=== PATIENT | female | born 1955 | race Hispanic/Latino ===

== ENCOUNTER 2017-07-01 08:24 | Emergency (ER) | payer MEDICARE ==
--- NOTE | 2017-07-01 08:59 | RAD ---
PA AND LATERAL VIEWS CHEST: HISTORY: Cough, flu. FINDINGS: Comparison is made with the exam of 03/03/12. The heart size is normal. The lungs are expanded without focal areas of consolidation, pneumothorax or pleural effusions. There are postop changes in the right axilla and shoulder. There are mild deg enerative changes in the spine. IMPRESSION: No radiographic evidence of acute cardiopulmonary process. POS: [facility]
[2017-07-01 09:02] LABS: #Basophils 0.1 thou/uL (0.0-0.2); #Eosinphils 0.3 thou/uL (0.0-0.7); #Lymphocytes 1.9 thou/uL (1.20-3.40); #Monocytes 0.7 thou/uL (0.11-0.59); #Neutrophils 8.4 thou/uL (1.40-6.50); %Basophils 0.5 % (0.0-1.0); %Eosinophils 2.6 % (0.0-10.0); %Lymphocytes 16.4 % (21.0-51.0); %Neutrophils 74.5 % (42.0-75.0); Hemoglobin 12.6 g/dL (12.0-16.0); Mean Corpuscular HGB CONC 31.7 g/dL (32.0-36.0); Mean Corpuscular Hemoglobin 27.7 pg (27.0-31.0); Mean Corpuscular Volume 87.2 fl (81.0-99.0); Mean Platelet Volume 8.6 fL (7.4-10.4); Platelet Count 239 thou/uL (130-400); RBC Distribution Width 13.4 % (11.5-14.5); Red Blood Cell (RBC) Count 4.55 mill/uL (4.20-5.40); White Blood Cell (WBC) Count 11.3 thou/uL (4.8-10.8)
[2017-07-01] MEDS ORDERED: Acetaminophen 500 MG TAB ONE ×2 (09:05)
[2017-07-01 09:24] LABS: ALT (SGPT) 15 U/L (8-55); AST (SGOT) 20 U/L (5-34); Albumin 3.7 g/dL (3.4-4.8); Alkaline Phosphatase 157 U/L (40-150); Anion Gap 9 mmol/L (10-20); BUN (Urea Nitrogen) 13 mg/dL (9.8-20.1); Bilirubin, Total 1.1 mg/dL (0.2-1.2); Calc. Creatinine Clearance 0 mL/min (70-130); Calcium 9.2 mg/dL (7.8-10.44); Carbon Dioxide 27 mmol/L (23-31); Chloride 101 mmol/L (98-107); Estimated GFR-MDRD Greater than 90; Globulin 3.7 g/dL (2.4-3.5); Glucose 267 mg/dL (80-115); Protein, Total 7.4 g/dL (6.0-8.3); Sodium 133 mmol/L (136-145)
[2017-07-01 09:32] LABS: Bilirubin Negative (Negative); Blood, Urine Negative (Negative); Clarity CLOUDY (Clear); Glucose, Urine (Dipstick) >=1000 mg/dL (Negative); Leukocyte Moderate (Negative); Nitrite Positive (Negative); Protein, Urine (Dipstick) Negative (Neg-Trace); Specific Gravity, Urine 1.029 (1.002-1.036); pH, Urine 6.5 (5.0-9.0)
[2017-07-01 09:35] LABS: Bacteria/HPF 4+ HPF (None Seen); Pathc Cast-AUWi Flag 1.62 (0-2.49); RBC/HPF 0-3 HPF (0-3); Squamous Epithelial 0-3 HPF (0-3)
[2017-07-01 10:12] LABS: Hyaline Casts/LPF NONE SEEN LPF (0-3 Hyaline)
== END 2017-07-01 09:59 | disposition home or self-care (01) ==
LOC: ERS 08:24
DX: J06.9 Acute upper respiratory infection, unspecified (principal); E11.9 Type 2 diabetes mellitus without complications; E78.5 Hyperlipidemia, unspecified; I10 Essential (primary) hypertension
CPT/HCPCS: 36416; 71046; 80053; 81003; 81015; 85025

== ENCOUNTER 2017-10-17 14:55 | Outpatient (CLI) | payer MEDICARE | END 2017-10-17 14:56 | disposition home or self-care (01) | LOC: BICMAMMO 14:55 | PROVIDERS: ATTEND Internal Medicine Medical Oncology | DX: Z12.31 Encounter for screening mammogram for malignant neoplasm of breast (principal); Z85.3 Personal history of malignant neoplasm of breast; Z80.3 Family history of malignant neoplasm of breast | CPT/HCPCS: 77063; 77067 ==

== ENCOUNTER 2018-06-29 12:36 | Emergency (ER) | payer MEDICARE | END 2018-06-29 13:59 | disposition home or self-care (01) | LOC: ERS 12:36 | DX: B34.9 Viral infection, unspecified (principal); E11.9 Type 2 diabetes mellitus without complications; I10 Essential (primary) hypertension; E78.5 Hyperlipidemia, unspecified; Z79.84 Long term (current) use of oral hypoglycemic drugs | CPT/HCPCS: 99283 ==

== ENCOUNTER 2019-02-23 12:58 | Outpatient (CLI) | payer MEDICARE ==
--- NOTE | 2019-02-23 13:50 | MMO ---
Bilateral MAMMO Bilat Screen [facility]. CLINICAL HISTORY: Patient is 63 years old and is seen for screening. The patient has the following family history of breast cancer: sister. 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 in the right breast at age 51. The patient has a history of right Lumpectomy in January, - malignant. VIEWS: The views performed were: bilateral craniocaudal with tomosynthesis and bilateral mediolateral oblique with tomosynthesis. FILMS COMPARED: The present examination has been compared to prior imaging studies performed at [facility] on 07/25/2013, 01/16/2015, 05/25/2016 and 10/17/2017. This study has been interpreted with the assistance of computer-aided detection. MAMMOGRAM FINDINGS: There are scattered fibroglandular densities. Finding 1: There are stable post operative changes seen in the right breast. Finding 2: There are stable benign appearing calcifications seen in both breasts. There are no suspicious masses, suspicious calcifications, or new areas of architectural distortion. IMPRESSION: THERE IS NO MAMMOGRAPHIC EVIDENCE OF MALIGNANCY. A ROUTINE FOLLOW-UP MAMMOGRAM IN 1 YEAR IS RECOMMENDED. THE RESULTS OF THIS EXAM WERE SENT TO THE PATIENT. ACR BI-RADS Category 2 - Benign finding MAMMOGRAPHY NOTE: 1. A negative mammogram report should not delay a biopsy if a dominant of clinically suspicious mass is present. 2. Approximately 10% to 15% of breast cancers are not detected by mammography. 3. Adenosis and dense breasts may obscure an underlying neoplasm. Reported by: WILLIS JARRELL MD Electonically Signed: [id number]
== END 2019-02-23 12:59 | disposition home or self-care (01) ==
LOC: BICMAMMO 12:58
PROVIDERS: ATTEND Internal Medicine Medical Oncology
DX: Z12.31 Encounter for screening mammogram for malignant neoplasm of breast (principal); Z85.3 Personal history of malignant neoplasm of breast; Z80.3 Family history of malignant neoplasm of breast
CPT/HCPCS: 77063; 77067

== ENCOUNTER 2021-06-30 09:34 | Outpatient (CLI) | payer MEDICARE | END 2021-06-30 09:35 | disposition home or self-care (01) | LOC: BICMAMMO 09:34 | PROVIDERS: ATTEND Internal Medicine Medical Oncology | DX: Z12.31 Encounter for screening mammogram for malignant neoplasm of breast (principal); Z80.3 Family history of malignant neoplasm of breast; Z85.3 Personal history of malignant neoplasm of breast; Z98.890 Other specified postprocedural states | CPT/HCPCS: 77063; 77067 ==

== ENCOUNTER 2021-09-15 16:20 | Outpatient (CLI) | payer MEDICARE | END 2021-09-15 16:21 | disposition home or self-care (01) | LOC: LABBT 16:20 | PROVIDERS: ATTEND Thoracic Surgery (Cardiothoracic Vascular Surgery) | DX: Z01.812 Encounter for preprocedural laboratory examination (principal); Z20.822 Contact with and (suspected) exposure to COVID-19 | CPT/HCPCS: 80048; 85027; 86850; 86900; 86901; 86920; U0003; U0005 ==

== ENCOUNTER 2021-09-15 16:30 | Inpatient (IN) | payer MEDICARE ==
[2021-09-15 18:18] LABS: Hemoglobin 11.4 g/dL (12.0-15.5); Mean Corpuscular HGB CONC 31.8 g/dL (32.0-36.0); Mean Corpuscular Hemoglobin 25.7 pg (27.0-33.0); Mean Corpuscular Volume 80.6 fl (81.6-98.3); Platelet Count 261 10x3/uL (150-450); RBC Distribution Width 15.8 % (11.5-14.5); Red Blood Cell (RBC) Count 4.44 10x6/uL (3.90-5.03); White Blood Cell (WBC) Count 6.7 10x3/uL (3.5-10.5)
[2021-09-15 18:35] LABS: Anion Gap 14 mmol/L (10-20); BUN (Urea Nitrogen) 22 mg/dL (9.8-20.1); Calc. Creatinine Clearance 0 mL/min (70-130); Calcium 9.4 mg/dL (7.8-10.44); Carbon Dioxide 24 mmol/L (23-31); Chloride 102 mmol/L (98-107); Glucose 262 mg/dL (80-115); Potassium 4.1 mmol/L (3.5-5.1); Sodium 136 mmol/L (136-145)
[2021-09-16 00:50] LABS: SARS-CoV-2 PCR by NAA Not Detected (NotDetected)
[2021-09-18] MEDS ORDERED: Albumin 5% 500 ML ONE (10:12)
[2021-09-18] MEDS ORDERED: PHENYLEPHRINE-NS 100 MCG/ML 10 ML SYRINGE ONE (10:38)
[2021-09-18] MEDS ORDERED: Midazolam HCl 2 mg/2 ml Vial ONE ×2 (10:56→11:13)
[2021-09-18] MEDS ORDERED: Lidocaine 1% MPF 2 ML VIAL ONE (10:56)
[2021-09-18] MEDS ORDERED: Heparin 10,000 UNITS/1 ML VIAL 30,000 UNITS in Sodium Chloride 0.9% 1,000 ML FS SCH (11:00)
[2021-09-18] MEDS ORDERED: Phenylephrine 10 MG/ML VIAL ONE (11:12)
[2021-09-18] MEDS ORDERED: Fentanyl 250 MCG/5 ML VIAL ONE (11:12)
[2021-09-18] MEDS ORDERED: Insulin Regular 300 UNITS/3 ML VIAL ONE (11:12)
[2021-09-18] MEDS ORDERED: ceFAZolin (BATCH) 2 GM/100 ML BAG ONE (11:32)
[2021-09-18] MEDS ORDERED: Papaverine 60 MG/2 ML VIAL ONE (11:52)
[2021-09-18] MEDS ORDERED: Lidocaine 2% PF 100 mg/5 ml Syringe ONE (11:52)
[2021-09-18] MEDS ORDERED: Heparin 5,000 UNITS/ML VIAL ONE (11:52)
[2021-09-18] MEDS ORDERED: Rocuronium Bromide 10 MG/ML (10ML VIAL) ONE (11:52)
[2021-09-18] MEDS ORDERED: Sodium Bicarb 50 MEQ/50 ML Abboject 8.4% SYRINGE ONE (11:52)
[2021-09-18] MEDS ORDERED: PROPOFOL 200 MG/20 ML VIAL ONE (11:52)
[2021-09-18] MEDS ORDERED: Ondansetron PF 4 MG/2 ML Vial ONE (11:52)
[2021-09-18] MEDS ORDERED: Calcium Chloride 1 GM/10 ML Abboject SYRINGE ONE (11:52)
[2021-09-18] MEDS ORDERED: Heparin 30,000 units/30 ml VIAL ONE (11:52)
[2021-09-18] MEDS ORDERED: Esmolol 100 MG/10 ML VIAL ONE (11:52)
[2021-09-18] MEDS ORDERED: Lidocaine 1% PF 5 ML VIAL ONE (11:52)
[2021-09-18] MEDS ORDERED: Aminocaproic Acid 5 GM/20 ML VIAL ONE (11:52)
[2021-09-18] MEDS ORDERED: Mannitol 12.5 GM/50 ML ONE (11:52)
[2021-09-18] MEDS ORDERED: Thrombin 5000 UNITS/5 ML VIAL ONE (11:52)
[2021-09-18] MEDS ORDERED: Cardioplegic Soln 1,000 ML BAG ONE (11:52)
[2021-09-18] MEDS ORDERED: Protamine Sulfate 50 MG/5 ML VIAL ONE (11:52)
[2021-09-18] MEDS ORDERED: Ketorolac Tromethamine 30 MG/ML VIAL ONE (11:52)
[2021-09-18] MEDS ORDERED: Magnesium Sulfate 1 GM/2 ML VIAL ONE (11:52)
[2021-09-18] MEDS ORDERED: HYDROcodone/Acetaminophen 5/325 mg Tablet PO PRN (15:22)
[2021-09-18] MEDS ORDERED: Nitroglycerin 50 MG/250 ML BOT 250 ML IVPB PRN (15:22)
[2021-09-18] MEDS ORDERED: Post-Op Insulin Drip Protocol IVPB ONE (15:22)
[2021-09-18] MEDS ORDERED: Fentanyl 100 MCG/2 ML VIAL SLOW IVP PRN (15:22)
[2021-09-18] MEDS ORDERED: Bisacodyl 5 MG TAB PO PRN (15:22)
[2021-09-18] MEDS ORDERED: DOPamine 400 MG/D5W 250 ML 250 ML IVPB PRN (15:22)
[2021-09-18] MEDS ORDERED: niCARdipine 25 MG in Sodium Chloride 0.9% 250 ML 250 ML IVPB PRN (15:22)
[2021-09-18] MEDS ORDERED: Mag-Al 1200 mg/1200 mg/30 ML UDCUP PO PRN (15:22)
[2021-09-18] MEDS ORDERED: hydrALAZINE 20 MG/ML VIAL SLOW IVP PRN (15:22)
[2021-09-18] MEDS ORDERED: Hetastarch 6% 500 ML 500 ML IVPB PRN (15:22)
[2021-09-18] MEDS ORDERED: Guaifenesin DM 100-10/5 ML UDCUP PO PRN (15:22)
[2021-09-18] MEDS ORDERED: Bisacodyl 10 MG SUPP PR PRN (15:22)
[2021-09-18] MEDS ORDERED: Promethazine HCl 25 MG/ML VIAL IM PRN (15:22)
[2021-09-18] MEDS ORDERED: Ondansetron PF 4 MG/2 ML Vial IVP PRN (15:22)
[2021-09-18] MEDS ORDERED: Morphine 2 MG/ML VIAL SLOW IVP PRN (15:22)
[2021-09-18] MEDS ORDERED: Acetaminophen 325 MG TAB PO PRN (15:22)
[2021-09-18 15:33] LABS: #Basophils 0.1 thou/uL (0.0-0.2); #Eosinphils 0.2 thou/uL (0.0-0.7); #Lymphocytes 1.7 thou/uL (1.20-3.40); #Monocytes 0.6 thou/uL (0.11-0.59); #Neutrophils 15.3 thou/uL (1.40-6.50); %Basophils 0.5 % (0.0-1.0); %Eosinophils 1.1 % (0.0-10.0); %Lymphocytes 9.4 % (21.0-51.0); %Monocytes 3.4 % (0.0-10.0); %Neutrophils 85.7 % (42.0-75.0); Hemoglobin 9.6 g/dL (12.0-16.0); Mean Corpuscular HGB CONC 31.2 g/dL (32.0-36.0); Mean Corpuscular Hemoglobin 26.2 pg (27.0-31.0); Mean Corpuscular Volume 84.1 fL (78.0-98.0); Mean Platelet Volume 9.8 fL (7.4-10.4); Platelet Count 152 thou/uL (130-400); RBC Distribution Width 14.5 % (11.5-14.5); Red Blood Cell (RBC) Count 3.66 mill/uL (4.20-5.40); White Blood Cell (WBC) Count 17.9 thou/uL (4.8-10.8)
[2021-09-18 15:42] LABS: Actual Bicarbonate (HCO3a) 21.5 mEq/L (22-28); Base Excess (BEa) -3.1 mEq/L (-2.0 to +3.0); Calcium, Ionized (arterial) 1.08 mmol/L (1.12-1.30); Hemoglobin (Hb) 10.6 g/dL (12.0-16.0); O2 Tension (PaO2), arterial 183.2 mmHg (> 80.0); Potassium - ABG Lab 3.91 mmol/L (3.70-5.30); Puncture Site Arterial Line; pH, Arterial 7.38 (7.35-7.45)
[2021-09-18 15:43] LABS: INR-International Normal Ratio 1.6
[2021-09-18] MEDS: Lactated Ringer's 1,000 ML IV SCH (15:43)
[2021-09-18 15:44] LABS: PTT 30.8 sec (22.9-36.1)
[2021-09-18] MEDS ORDERED: Dextrose 5% in Water 1,000 ML IV PRN (15:45)
[2021-09-18] MEDS ORDERED: HUMULIN R 100 UNITS in Sodium Chloride 0.9% 100 ML IVPB SCH (15:45)
[2021-09-18] MEDS ORDERED: Dextrose 50% Abboject 50 ML SYRINGE SLOW IVP PRN (15:45)
[2021-09-18] MEDS: Insulin Regular 300 UNITS/3 ML VIAL SC PRN (15:47)
[2021-09-18] MEDS: Fentanyl 100 MCG/2 ML VIAL SLOW IVP PRN ×2 (15:49→22:45)
[2021-09-18 15:51] LABS: Anion Gap 9 mmol/L (10-20); BUN (Urea Nitrogen) 17 mg/dL (9.8-20.1); Calc. Creatinine Clearance 125 mL/min (70-130); Calcium 7.2 mg/dL (7.8-10.44); Carbon Dioxide 23 mmol/L (23-31); Chloride 113 mmol/L (98-107); Glucose 164 mg/dL (80-115); Potassium 3.8 mmol/L (3.5-5.1); Sodium 141 mmol/L (136-145)
[2021-09-18] MEDS: ceFAZolin (BATCH) 2 GM in Premix Bag 1 BAG IVPB SCH (19:54)
[2021-09-18 20:30] LABS: Hemoglobin 10.9 g/dL (12.0-16.0)
[2021-09-18 20:50] LABS: Actual Bicarbonate (HCO3a) 21.7 mEq/L (22-28); Base Excess (BEa) -3.6 mEq/L (-2.0 to +3.0); CO2 Tension 40.3 mmHg (35.0-45.0); Calcium, Ionized (arterial) 1.11 mmol/L (1.12-1.30); Carboxyhemoglobin (COHb) 0.4 gm% (0.0-3.0); Hemoglobin (Hb) 11.5 g/dL (12.0-16.0); O2 Tension (PaO2), arterial 165.1 mmHg (> 80.0); Potassium - ABG Lab 3.91 mmol/L (3.70-5.30); pH, Arterial 7.35 (7.35-7.45)
[2021-09-18 20:51] LABS: ALV-art Gradient 69.725 mmHg (0-20); Puncture Site ALINE
[2021-09-18] MEDS ORDERED: Famotidine/PF 20 mg/2ml Vial SLOW IVP SCH (21:00)
[2021-09-18 21:04] LABS: Potassium 3.7 mmol/L (3.5-5.1)
[2021-09-19] MEDS: Potassium Chloride 20 MEQ/100 ML PREMIX BAG IVPB PRN (00:25)
[2021-09-19] MEDS: Fentanyl 100 MCG/2 ML VIAL SLOW IVP PRN ×4 (00:30→06:37)
[2021-09-19] MEDS: HYDROcodone/Acetaminophen 5/325 mg Tablet PO PRN ×5 (01:06→21:17)
[2021-09-19] MEDS: ceFAZolin (BATCH) 2 GM in Premix Bag 1 BAG IVPB SCH ×2 (03:58→11:08)
[2021-09-19 04:44] LABS: #Lymphocytes 2.1 thou/uL (1.20-3.40); #Neutrophils 10.8 thou/uL (1.40-6.50); %Basophils 0.3 % (0.0-1.0); %Eosinophils 0.1 % (0.0-10.0); %Lymphocytes 15.3 % (21.0-51.0); %Monocytes 6.8 % (0.0-10.0); %Neutrophils 77.4 % (42.0-75.0); Hemoglobin 10.5 g/dL (12.0-16.0); Mean Corpuscular HGB CONC 31.5 g/dL (32.0-36.0); Mean Corpuscular Hemoglobin 26.6 pg (27.0-31.0); Mean Corpuscular Volume 84.5 fL (78.0-98.0); Mean Platelet Volume 9.7 fL (7.4-10.4); Platelet Count 184 thou/uL (130-400); RBC Distribution Width 14.7 % (11.5-14.5); Red Blood Cell (RBC) Count 3.93 mill/uL (4.20-5.40)
[2021-09-19] MEDS: Lactated Ringer's 1,000 ML IV SCH (05:05)
[2021-09-19 05:06] LABS: Anion Gap 11 mmol/L (10-20); BUN (Urea Nitrogen) 19 mg/dL (9.8-20.1); Calc. Creatinine Clearance 129 mL/min (70-130); Calcium 7.7 mg/dL (7.8-10.44); Carbon Dioxide 23 mmol/L (23-31); Chloride 109 mmol/L (98-107); Glucose 149 mg/dL (80-115); Potassium 4.1 mmol/L (3.5-5.1); Sodium 139 mmol/L (136-145)
[2021-09-19] MEDS: Aspirin 325 MG TAB PO SCH (09:18)
[2021-09-19] MEDS: Furosemide 20 MG TAB PO SCH (09:19)
[2021-09-19] MEDS: Polyethylene Glycol 3350 17 GM Packet PO SCH (09:19)
[2021-09-19] MEDS: Famotidine 20 MG TAB PO SCH ×2 (09:19→20:45)
[2021-09-19] MEDS: Clopidogrel Bisulfate 75 MG TAB PO SCH (09:20)
[2021-09-19] MEDS: Ketorolac Tromethamine 30 MG/ML VIAL IVP SCH ×2 (11:07→17:33)
[2021-09-19] MEDS: Insulin Regular 300 UNITS/3 ML VIAL SC PRN ×3 (11:36→20:45)
[2021-09-19] MEDS: Atorvastatin Calcium 20 MG TAB PO SCH (20:45)
[2021-09-20] MEDS: Ketorolac Tromethamine 30 MG/ML VIAL IVP SCH ×4 (00:18→18:32)
[2021-09-20] MEDS: Insulin Regular 300 UNITS/3 ML VIAL SC PRN ×5 (00:23→16:38)
[2021-09-20 05:16] LABS: Anion Gap 12 mmol/L (10-20); BUN (Urea Nitrogen) 16 mg/dL (9.8-20.1); Calc. Creatinine Clearance 116 mL/min (70-130); Calcium 7.8 mg/dL (7.8-10.44); Carbon Dioxide 25 mmol/L (23-31); Chloride 103 mmol/L (98-107); Glucose 170 mg/dL (80-115); Potassium 3.8 mmol/L (3.5-5.1); Sodium 136 mmol/L (136-145)
[2021-09-20] MEDS: Potassium Chloride 20 MEQ/100 ML PREMIX BAG IVPB PRN (05:34)
[2021-09-20 05:52] LABS: #Basophils 0.1 thou/uL (0.0-0.2); #Eosinphils 0.3 thou/uL (0.0-0.7); #Lymphocytes 2.4 thou/uL (1.20-3.40); #Monocytes 1.2 thou/uL (0.11-0.59); #Neutrophils 8.4 thou/uL (1.40-6.50); %Basophils 0.6 % (0.0-1.0); %Eosinophils 2.2 % (0.0-10.0); %Lymphocytes 19.6 % (21.0-51.0); %Monocytes 9.8 % (0.0-10.0); %Neutrophils 67.8 % (42.0-75.0); Band 11 % (5-11); Eosinophils 1 % (0-10); Hemoglobin 9.5 g/dL (12.0-16.0); Hypochromia SLIGHT = 6-15 cells (100X) (0-5/hpf); Lymphocytes 16 % (21-51); MDiff Complete? YES; Mean Corpuscular HGB CONC 33.4 g/dL (32.0-36.0); Mean Corpuscular Hemoglobin 28.4 pg (27.0-31.0); Mean Corpuscular Volume 85.2 fL (78.0-98.0); Mean Platelet Volume 9.2 fL (7.4-10.4); Monocytes 5 % (0-10); Neutrophil 67 % (42-75); Platelet Count 146 thou/uL (130-400); Platelet Morphology Comment Appears Adequate; RBC Distribution Width 14.4 % (11.5-14.5); Red Blood Cell (RBC) Count 3.33 mill/uL (4.20-5.40); White Blood Cell (WBC) Count 12.4 thou/uL (4.8-10.8)
[2021-09-20] MEDS: Polyethylene Glycol 3350 17 GM Packet PO SCH ×2 (08:42→10:35)
[2021-09-20] MEDS: Furosemide 20 MG TAB PO SCH (08:42)
[2021-09-20] MEDS: Clopidogrel Bisulfate 75 MG TAB PO SCH (08:42)
[2021-09-20] MEDS: Famotidine 20 MG TAB PO SCH ×2 (08:42→20:53)
[2021-09-20] MEDS: HYDROcodone/Acetaminophen 5/325 mg Tablet PO PRN ×2 (08:43→20:53)
[2021-09-20] MEDS: Aspirin 325 MG TAB PO SCH (08:44)
[2021-09-20] MEDS: Glimepiride 4 MG TAB PO SCH (08:44)
[2021-09-20] MEDS ORDERED: Nitroglycerin 0.4 MG TAB (25 Tab Bottle) SL PRN (09:08)
[2021-09-20] MEDS ORDERED: Mineral Oil ENEMA PR PRN (09:08)
[2021-09-20] MEDS ORDERED: Dextrose 5% in Water 1,000 ML IV PRN (09:45)
[2021-09-20] MEDS ORDERED: Potassium Chloride 10 MEQ TAB PO SCH (09:45)
[2021-09-20] MEDS ORDERED: Dextrose 50% Abboject 50 ML SYRINGE SLOW IVP PRN (09:45)
[2021-09-20] MEDS: Atorvastatin Calcium 20 MG TAB PO SCH (20:53)
[2021-09-20] MEDS: Insulin Glargine 30 UNITS/0.3 ML VIAL SC SCH (20:54)
[2021-09-21] MEDS: Ketorolac Tromethamine 30 MG/ML VIAL IVP SCH ×4 (00:36→18:29)
[2021-09-21 05:14] LABS: #Basophils 0.1 thou/uL (0.0-0.2); #Eosinphils 0.3 thou/uL (0.0-0.7); %Basophils 0.6 % (0.0-1.0); %Eosinophils 3.1 % (0.0-10.0); %Lymphocytes 21.6 % (21.0-51.0); %Monocytes 10.8 % (0.0-10.0); %Neutrophils 63.9 % (42.0-75.0); Hemoglobin 8.8 g/dL (12.0-16.0); Mean Corpuscular HGB CONC 33.1 g/dL (32.0-36.0); Mean Corpuscular Hemoglobin 27.8 pg (27.0-31.0); Mean Platelet Volume 9.1 fL (7.4-10.4); Platelet Count 177 thou/uL (130-400); RBC Distribution Width 14.3 % (11.5-14.5); Red Blood Cell (RBC) Count 3.17 mill/uL (4.20-5.40); White Blood Cell (WBC) Count 9.4 thou/uL (4.8-10.8)
[2021-09-21 05:35] LABS: Anion Gap 9 mmol/L (10-20); BUN (Urea Nitrogen) 14 mg/dL (9.8-20.1); Calc. Creatinine Clearance 114 mL/min (70-130); Calcium 7.8 mg/dL (7.8-10.44); Carbon Dioxide 25 mmol/L (23-31); Chloride 103 mmol/L (98-107); Glucose 230 mg/dL (80-115); Potassium 4.2 mmol/L (3.5-5.1); Sodium 133 mmol/L (136-145)
[2021-09-21] MEDS: Insulin Regular 300 UNITS/3 ML VIAL SC PRN ×3 (06:03→18:33)
[2021-09-21] MEDS: Aspirin 325 MG TAB PO SCH (10:38)
[2021-09-21] MEDS: Glimepiride 4 MG TAB PO SCH (10:38)
[2021-09-21] MEDS: Potassium Chloride 10 MEQ TAB PO SCH (10:38)
[2021-09-21] MEDS: Polyethylene Glycol 3350 17 GM Packet PO SCH (10:39)
[2021-09-21] MEDS: Furosemide 20 MG TAB PO SCH (10:39)
[2021-09-21] MEDS: Famotidine 20 MG TAB PO SCH ×2 (10:39→21:18)
[2021-09-21] MEDS: Clopidogrel Bisulfate 75 MG TAB PO SCH (10:39)
[2021-09-21 12:43] VITALS: BMI 36.1
[2021-09-21] MEDS: Atorvastatin Calcium 20 MG TAB PO SCH (21:18)
[2021-09-21] MEDS: HYDROcodone/Acetaminophen 5/325 mg Tablet PO PRN (21:19)
[2021-09-21] MEDS: Insulin Glargine 30 UNITS/0.3 ML VIAL SC SCH (21:20)
[2021-09-22] MEDS: Ketorolac Tromethamine 30 MG/ML VIAL IVP SCH ×3 (01:12→12:42)
[2021-09-22] MEDS: Insulin Regular 300 UNITS/3 ML VIAL SC PRN ×2 (06:19→12:44)
[2021-09-22] MEDS: Furosemide 20 MG TAB PO SCH (09:15)
[2021-09-22] MEDS: Clopidogrel Bisulfate 75 MG TAB PO SCH (09:15)
[2021-09-22] MEDS: Potassium Chloride 10 MEQ TAB PO SCH (09:16)
[2021-09-22] MEDS: Famotidine 20 MG TAB PO SCH (09:16)
[2021-09-22] MEDS: Aspirin 325 MG TAB PO SCH (09:16)
[2021-09-22] MEDS: Glimepiride 4 MG TAB PO SCH (09:16)
[2021-09-22] MEDS: Polyethylene Glycol 3350 17 GM Packet PO SCH (09:17)
[2021-09-22 17:02] VITALS: BP 138/63; TEMP 98.1
== END 2021-09-22 16:53 | disposition home or self-care (01) | DRG 236 ==
LOC: SURG A 09-18 10:24 → CCU 09-18 15:04 → 2NO 09-20 19:47
PROVIDERS: ADMIT Thoracic Surgery (Cardiothoracic Vascular Surgery); ATTEND Thoracic Surgery (Cardiothoracic Vascular Surgery)
PROC: 021009W Bypass Coronary Artery, One Artery from Aorta with Autologous Venous Tissue, Open Approach (ICD-10-PCS; principal; 2021-09-18)
PROC: 02100Z9 Bypass Coronary Artery, One Artery from Left Internal Mammary, Open Approach (ICD-10-PCS; 2021-09-18)
PROC: 06BQ0ZZ Excision of Left Saphenous Vein, Open Approach (ICD-10-PCS; 2021-09-18)
PROC: 5A1221Z Performance of Cardiac Output, Continuous (ICD-10-PCS; 2021-09-18)
PROC: 02L70CK Occlusion of Left Atrial Appendage with Extraluminal Device, Open Approach (ICD-10-PCS; 2021-09-18)
DX: I25.10 Atherosclerotic heart disease of native coronary artery without angina pectoris (principal); Z20.822 Contact with and (suspected) exposure to COVID-19; I10 Essential (primary) hypertension; E11.9 Type 2 diabetes mellitus without complications; Z79.899 Other long term (current) drug therapy; Z79.4 Long term (current) use of insulin; Z79.84 Long term (current) use of oral hypoglycemic drugs; Z79.02 Long term (current) use of antithrombotics/antiplatelets; Z79.82 Long term (current) use of aspirin; Z85.3 Personal history of malignant neoplasm of breast; Z95.5 Presence of coronary angioplasty implant and graft; Z98.890 Other specified postprocedural states; Z90.710 Acquired absence of both cervix and uterus
CPT/HCPCS: 36415; 36416; 36430; 71045; 80048; 82805; 82947; 85025; 85027; 85610; 85730; 86850; 86900; 86901; 93005; 93010; 93798; 94002; 94150; 97139; C1751; J0690; J1642; J1644; J1815; J1885; J2001; J2150; J2250; J2370; J2405; J2440; J2704; J2720; J3010; J3370; J3475; J3480; J3490; J7120; P9045; S0017; S0028; U0003; U0005

== ENCOUNTER 2022-09-22 10:28 | Outpatient (CLI) | payer MEDICARE | END 2022-09-22 10:29 | disposition home or self-care (01) | LOC: BICMAMMO 10:28 | PROVIDERS: ATTEND Family Medicine | DX: Z12.31 Encounter for screening mammogram for malignant neoplasm of breast (principal) | CPT/HCPCS: 77063; 77067 ==

== ENCOUNTER 2025-03-13 13:24 | Outpatient (CLI) | payer OTHER, BC | END 2025-03-13 13:25 | disposition home or self-care (01) | LOC: RAD 13:24 | PROVIDERS: ATTEND Internal Medicine | DX: R06.00 Dyspnea, unspecified (principal) | CPT/HCPCS: 71046 ==